=== PATIENT | female | born 1950 | race Caucasian/White ===

== ENCOUNTER → 2024-01-16 12:13 | Outpatient (REF) | payer MEDICARE, OTHER, SELFPAY | LOC: RAD 12:13 | PROVIDERS: ATTENDING PHYSICIAN Internal Medicine Cardiovascular Disease; FAMILY PHYSICIAN Family Medicine; REFERRING PHYSICIAN Internal Medicine Cardiovascular Disease | DX: I48.91 Unspecified atrial fibrillation (principal); Z95.2 Presence of prosthetic heart valve; Z98.890 Other specified postprocedural states; I27.20 Pulmonary hypertension, unspecified | CPT/HCPCS: 71260; 74177; Q9967 ==

== ENCOUNTER 2024-04-20 05:50 | Day surgery (SDC) | payer MEDICARE, OTHER, SELFPAY ==
[2024-02-02 11:05] VITALS: BMI 31.6
[2024-04-10 10:36] VITALS: BMI 31.1
[2024-04-20] VITALS (26 sets, daily range): BP systolic 76–138; BP diastolic 54–91; BMI 30.7
[2024-04-20 07:13] LABS: PT 23.8 Sec (11.4-14.6)
[2024-04-20 09:16] LABS: ACT-LR - POC 384 Seconds (116-155)
[2024-04-20 09:40] LABS: ACT-LR - POC 372 Seconds (116-155)
--- NOTE | 2024-04-20 10:05 | ITS.CL.ABL ---
Addendum entered and electronically signed by Olegario Cm MD 04/20/24 10:50:
Lead information on the epicardial pacing lead is Medtronic serial number [id number] and [id number] implant date 11/02/2021 which was inactivated but in the left deltopectoral pocket via fluoroscopy. Brand is Capsure epi
Original Note:
Pot Room Tapper - Ablation
Ablation
Procedure Report:
ELECTROPHYSIOLOGY ABLATION STUDY
�
DATE:: April 20, 2024���������������������������� REFERRING: Dr. Noah Hand
�
INDICATION: Persistent atrial fibrillation
�
HISTORY: See H and P.� Recent pulmonic valve replacement, aortic valve replacement, tricuspid valve ring with prior open heart surgery in the with pulmonic valve repair.
�
ANTIARRHYTHMIC DRUG: Metoprolol
�
PRE-PROCEDURE WENDY: No intracardiac thrombus on intracardiac ultrasound
�
PRESENTING RHYTHM: A-fib
�
'TIME-OUT':� called and confirmed.
�
SEDATION/ANESTHESIA:� provided via the anesthesia department using general anesthesia (LMA).
�
INTRAVENOUS/ARTERIAL ACCESS:
Right femoral venous - 8Fr
Left femoral venous - 8 Fr, 6 Fr
Ultrasound guidance for bilateral femoral vein access was utilized by me to obtain access with demonstration of normal anatomy
CHADS-VASC Score: Age greater than 75, female gender, hypertension
�
HAS-Bled Score
�
PROCEDURE:�
1.� A decapolar CS catheter was placed within the CS for mapping and pacing.� This was also used as the reference catheter for the 3-D map. The patient was noted to have an epicardial so on pacemaker lead which was not indicated in the surgical
report. The surgical report indicates an ICD lead was sewn on but it is a pacemaker lead. We obtained the information demonstrating a saw on Medtronic pacemaker lead which is tunneled into the left deltopectoral groove pocket. Utilizing
ultrasound guidance venous access was relatively straightforward. She had bilateral cutdowns with abdominal incision and clamshell as part of her surgery in the .
�
2. The intracardiac ultrasound catheter was positioned in the RA to identify the FO for targeting of transseptal puncture, assist� in identification of the pulmonary vein ostia, monitoring pre and post ablation pulmonary vein flow velocities,
monitoring for 'bubble' formation during RF application as a sign of thermal injury,� and to monitor for pericardial effusion during mapping and ablation procedure.�� Left atrial size, LV ejection fraction, and pulmonary vein flows were monitored
pre and post ablation procedure. The other valves were inspected and found to be free of significant regurgitation or stenosis.
�
3.� Half of the calculated heparin bolus was administered prior to the first transeptal puncture.� Transseptal puncture was performed to diagnose RA and LA pressure so that safety of LA mapping and ablation could be further assessed, and to access
the left atrium and pulmonary veins for mapping and ablation.� This entailed advancing an 10 Alger[place] Contour with dilator into the superior vena cava and withdrawing both (monitoring intracardiac ultrasound, fluoroscopy and tip pressure) with the tip
oriented toward the atrial septum.� The fossa ovalis was engaged (indicated by sudden displacement of the sheath tip as well as tenting of the fossa seen on intracardiac ultrasound).� Left atrial access required a pass with the Brockenbrough needle
extended.� Left atrial catheter position was confirmed by pressure monitoring (RA mean pressure 8 mm Hg and LA mean presure 14 mm Hg), LA saturation ( 99%),� as well as fluoroscopy.� The sheath was advanced over the dilator and positioned in the
left atrium.� This procedure was repeated for the Agilis sheath.� The remainder of the calculated heparin bolus was administered and heparin was
infused to maintain ACT at 300 -350 seconds throughout the case.
�
4.� RA pacing was performed via the proximal decapolar poles and LA pacing was performed via the distal decapolar poles.
�
5. A quadrapolar catheter was first positioned at the His position for His Bundle recording which was tagged via the 3-D Navex sytem, and then passed to the RVA for RV pacing and recording.
�
6. The multipolar grid and PFA catheter were placed in each of the LIPV, LSPV, RSPV and the RIPV.��
�
7.� Next, a 3-D map was created using Navex.�� A 3-D reconstructed CT image was compared to the 3-D Navex map to assist in anatomic interpretation, mapping and ablation.� The CT image and the NavX image were fused.
�
8. Pulmonary vein and nonpulmonary vein lesions were created with entrance and exit block in each of the 4 pulm veins and the posterior wall. The patient was converted to sinus rhythm with a 6-second pause and resumption of junctional rhythm.
Atropine was given an answer with eventual return of sinus rhythm in the 40s and hemodynamic stability. After anesthesia was removed sinus rates in the 50s were noted with hemodynamic stability. We did pace the right atrium at 1200 ms for 15
minutes to bring about sinus node function in addition to the atropine.
�
9. Sinus node dysfunction as above with AV conduction and AV Wenke block at 420 ms with block in the AH interval.
�
TOTAL FLOURO TIME: 16.7 minutes 123 mGy
�
TOTAL RF DURATION: 0 minutes
�
REVERSAL OF HEPARIN: 35 mg of protamine, slow IV administration
�
COMPLICATIONS:�
None
Intracardiac US shows no pericardial effusion post ablation.
�
SUMMARY:��
Complex left atrial mapping and ablation.
Isolation of the left atrial posterior wall and pulmonary veins. We obtain lead information on the ventricular pacing lead which is Medtronic in standard pin connection which is tunneled into the left pocket.
�
RECOMMENDATIONS:
1. Admit to monitored bed.
2. Resume anticoagulation
3.� Discontinue metoprolol and will monitor for the next 24 hours in terms of sinus node function. Throughout the day if she notices no return and improvement of sinus node function we may even consider discharge later this evening.
4.� Out of bed in 4 hours
�
Copy to: Dr. Noah Hand
�
[2024-04-20] MEDS: NSS 500 IV (10:55)
[2024-04-20] MEDS: ANESTHETIC LOZENGE 1 LOZENGE PO ×2 (11:31→19:39)
--- NOTE | 2024-04-20 13:57 | PTCARENOTE ---
received pt post PVI, bilateral groins CDI. Pt offers no complaints at this time. pt oriented to unit. pt educated on plan of care and pt verbalized understanding.
pts BP is 86/66, notified Padmini Morgan, will continues to watch. call bellamy within reach.
[2024-04-20] MEDS: PROTONIX 40 MG PO (17:27)
[2024-04-20] MEDS: COUMADIN 2.5 MG PO (17:27)
--- NOTE | 2024-04-20 18:57 | PTCARENOTE ---
pt continues to be sr on the monitor, hr in the 70s, vss. pt offers no complaints at this time. bilateral figure eights cut, dressing CDI. pt educated on plan of care and pt verbalized understanding. call bellamy within reach.
--- NOTE | 2024-04-21 00:24 | PTCARENOTE ---
Pt. has no complaints pain/discomfort, VSS, NSR with PVC's on the monitor. B/L groin site dressings CDI without any S&S hematoma, pedal pulses present via Doppler. BP improved, last . Pt. currently sleeping.
[2024-04-21 03:28] VITALS: BP 100/72
[2024-04-21 04:07] LABS: Hematocrit 34.9 % (37.0-47.0); Hemoglobin 11.4 g/dL (12.0-16.0); Mean Corp Hgb Conc. 32.7 g/dL (33.0-37.0); Mean Corpuscular Hgb 28.1 pg (27.0-31.0); Mean Corpuscular Volume 86.2 fL (81.0-99.0); Mean Platelet Volume 9.6 fL (7.4-10.4); Platelet Count 162 10^3/uL (130-400); Red Blood Cell Count 4.05 10^6/uL (4.20-5.40); Red Cell Dist. Width 14.3 % (11.5-14.5); White Blood Cell Count 7.1 10^3/uL (4.8-10.8)
[2024-04-21 04:10] LABS: INR 2.48; PT 26.8 Sec (11.4-14.6)
[2024-04-21 04:28] LABS: Blood Urea Nitrogen 19 mg/dl (7-17); Calcium 9.3 mg/dl (8.4-10.2); Carbon Dioxide 25 mmol/L (22-30); Chloride 105 mmol/L (98-107); Estimated Creatinine Clearance 63 ml/min; Glucose 116 mg/dl (70-99); Potassium 4.2 mmol/L (3.5-5.1); Sodium 136 mmol/L (135-145); eGFR > 60.00
[2024-04-21 05:35] VITALS: BMI 31.5
[2024-04-21 06:00] VITALS: BMI 30.7
[2024-04-21] MEDS: LOW STRENGTH ASPIRIN 81 MG PO (07:35)
[2024-04-21 07:39] VITALS: BP 108/74
--- NOTE | 2024-04-21 08:45 | W.PN.CARDCBS ---
Addendum entered and electronically signed by Venkat Romo DO 04/21/24 09:19:
I saw and examined the patient.
The Biology Professor's note was reviewed and I agree with the note.
Comment:
Patient seen and examined this morning no acute events overnight. Patient sinus rhythm with PVCs with compensatory pauses less than 2 seconds in duration. Patient asymptomatic. Patient denies any chest pain, shortness of breath, lightheadedness,
dizziness, near-syncope, syncope, or weakness.
GEN: No distress, awake, alert, oriented x3
HEENT: supple, anicteric, mmm, eomi
LUNGS: CTA B/L, no wheezes/rales
CV: Reg, S1/S2, 1/6 syst LSB
ABD: soft, BS+, NT/ND
EXT: No cyanosis, clubbing, edema
NEURO: Gross non-focal
SKIN: Warm, pink, dry. No rash. B/L groin sites soft, c/d/i
A/P as below
Persistent atrial fibrillation/atrial flutter status post PVI 04/20/2024 doing well remains in sinus rhythm
Continue oral anticoagulation uninterrupted, monitor INR as followed by outpatient railroad purchasing agent
Hold metoprolol given episodes of sinus bradycardia and compensatory pauses post PVC
Patient to follow-up Tuesday for 5-day event rhythmstar monitor to reassess bradycardic burden and provide further data for possible reinitiation of beta-kellie
Follow-up with Dr. Hand
Original Note:
Today's Communication / Plan
-
for DC today
[facility] office to contact patient tuesday to place 5 day rhythm star monitor
toprol discontinued
continue coumadin
OP follow up with [facility]
Impression / Plan
-
Primary Peer Financial Counselor: Dr. Hand of [facility]
Primary EP: Dr. Cm
Assessment:
Persistent atrial fibrillation/typical aflutter s/p PVI 04/20/24
Valvular disease
s/p remote pulmonic valve repair at age 6
s/p AVR (tissue), PVR (tissue), tricuspid repair and epicardial IV ICD lead 10/2021, Dr. Hernandez, [facility].
Chronic coumadin therapy
Hypertension
GERD with questionable history of GIB due to gastric ulcer
Obstructive sleep apnea, CPAP intolerant
Iron deficiency anemia
Plan:
-Status post PVI 04/20/2024
-Bilateral groin sites clean dry and intact, soft. discussed avoiding creams/ointments to area (states she is a lover of vaseline), keep clean and dry
-Hemoglobin 11.4
-Outpatient Toprol discontinued due to bradycardia and some pauses approximately 2 seconds noted postprocedure
-Of note, she does have periods of ventricular bigeminy, however overall heart rates improved in the 60s to 70s this morning. She is ambulated without difficulty
-Will plan for outpatient rhythm start 5-day monitor placement on Tuesday in [facility] office
-continue coumadin, INR 2.48 on 04/21
-Outpatient follow-up with [facility]
-ok for DC to home today
-d/w nursing
dictation #[id number]
Progress Note - Peer Financial Counselor
Subjective
Date of Service: April 21, 2024
Reported some shakiness last night, however states she did not eat well. Feeling better this morning. No lightheadedness or palpitations reported
Objective
Labs:
04/21/24 03:41
04/21/24 03:41
Labs
Hgb 11.4 g/dL (12.0-16.0) L 04/21/24 03:41
Hct 34.9 % (37.0-47.0) L 04/21/24 03:41
Plt Count 162 10^3/uL (130-400) 04/21/24 03:41
PT 26.8 Sec (11.4-14.6) H 04/21/24 03:41
INR 2.48 04/21/24 03:41
Sodium 136 mmol/L (135-145) 04/21/24 03:41
Potassium 4.2 mmol/L (3.5-5.1) 04/21/24 03:41
BUN 19 mg/dl (7-17) H 04/21/24 03:41
Creatinine 0.8 mg/dL (0.6-1.0) 04/21/24 03:41
Glucose 116 mg/dl (70-99) H 04/21/24 03:41
Vital Signs and I&O:
Vital Signs
Temp Pulse Resp BP Pulse Ox
98.3 F 75 19 100/72 97
04/21/24 03:28 04/21/24 07:00 04/21/24 03:28 04/21/24 03:28 04/21/24 07:41
Vital Signs
Temp Pulse Resp BP Pulse Ox
98.3 F 75 19 100/72 97
04/21/24 03:28 04/21/24 07:00 04/21/24 03:28 04/21/24 03:28 04/21/24 07:41
Intake & Output
04/19/24 04/20/24 04/21/24 04/22/24
07:59 07:59 07:59 07:59
Intake Total 2750 / 2750
Balance 2750 / 2750
Physical Exam
Physical Exam
GEN: No distress, awake, alert, oriented x3
HEENT: supple, anicteric, mmm, eomi
LUNGS: CTA B/L, no wheezes/rales
CV: Reg, S1/S2, 1/6 syst LSB
ABD: soft, BS+, NT/ND
EXT: No cyanosis, clubbing, edema
NEURO: Gross non-focal
SKIN: Warm, pink, dry. No rash. B/L groin sites soft, c/d/i
--- NOTE | 2024-04-21 08:53 | PTCARENOTE ---
pt continues to be sr/bigeminy on heart monitor, hr in the 60s-70s, vss. pt offers no complaints at this time. pt educated on plan of care for the day and pt verbalized understanding. call bellamy within reach.
--- NOTE | 2024-04-21 09:01 | W.DS.TRANS ---
DC Summary - [facility]
-
Discharge Instructions:
Discharge Diagnosis/Procedures AFib, s/p ablation
Diet Low Cholesterol
Driving Restrictions No driving for 24 hours
Bathing Restrictions OK to Shower
Others Tests 5 day alarm security or surveillance monitor - Dr. Cm's office
will call you on Monday 04/23 with time to report
for placement
Instructions:
Stand-Alone Forms: DC Instructions- Cath/EP Lab
Changes to Home Medications: Yes
Discharge Medications:
DC Medications w/original date entered in [employer]
One-A-Day Women's 50 Plus 1 tab PO DAILY 01/26/24
aspirin 81 mg tablet 81 mg PO DAILY 01/26/24
cephalexin 500 mg tablet 2,000 mg PO ONCE PRN pre dental 01/26/24
cholecalciferol (vitamin D3) 25 mcg (1,000 unit) tablet (Vitamin D3) 50 mcg PO DAILY 01/26/24
cyanocobalamin (vitamin B-12) 1,000 mcg tablet (Vitamin B-12) 1,000 mcg PO DAILY 01/26/24
magnesium oxide 400 mg PO DAILY 01/26/24
pantoprazole 40 mg tablet,delayed release 40 mg PO QPM 01/26/24
warfarin 5 mg tablet 2.5 mg PO MOWEFR 01/26/24
warfarin 5 mg tablet 7.5 mg PO SUTUTHSA 01/26/24
Home Medication Changes
toprol stopped
Pending Results: No
--- NOTE | 2024-04-21 11:11 | PTCARENOTE ---
d/c instructions read to pt and pt verbalized understanding. iv and tele removed. pt left via wheelchair with staff member. pt left w/ belongings from room and educational material.
[2024-04-23 13:29] LABS: ACT-LR - POC > 397 Seconds (116-155)
== END 2024-04-21 11:12 | disposition home or self-care (01) ==
LOC: CATH 05:50
PROVIDERS: Nurse Practitioner; ATTENDING PHYSICIAN Internal Medicine Cardiovascular Disease; FAMILY PHYSICIAN Family Medicine; OTHER PHYSICIAN Internal Medicine Cardiovascular Disease
DX: I48.19 Other persistent atrial fibrillation (principal); I48.92 Unspecified atrial flutter; R00.2 Palpitations; R06.02 Shortness of breath; Z79.899 Other long term (current) drug therapy; Z79.01 Long term (current) use of anticoagulants; D15.1 Benign neoplasm of heart; I08.1 Rheumatic disorders of both mitral and tricuspid valves; I10 Essential (primary) hypertension; K21.9 Gastro-esophageal reflux disease without esophagitis; G47.33 Obstructive sleep apnea (adult) (pediatric); E66.9 Obesity, unspecified; Z68.31 Body mass index [BMI] 31.0-31.9, adult; D50.9 Iron deficiency anemia, unspecified; Z79.82 Long term (current) use of aspirin; Z88.0 Allergy status to penicillin; Z90.49 Acquired absence of other specified parts of digestive tract
CPT/HCPCS: C1732; C1730; C1733; C1769; C1892; C1766; C1759; 76937; 80048; 85027; 85347; 85610; 86900; 86901; 93005; 93656

== ENCOUNTER → 2025-07-09 09:00 | Outpatient (REF) | payer MEDICARE, OTHER, SELFPAY | LOC: DHSLP 09:00 | PROVIDERS: ATTENDING PHYSICIAN Internal Medicine Cardiovascular Disease; FAMILY PHYSICIAN Family Medicine | DX: G47.33 Obstructive sleep apnea (adult) (pediatric) (principal); R09.02 Hypoxemia | CPT/HCPCS: 95800 ==

== ENCOUNTER 2025-09-12 09:45 | Day surgery (SDC) | payer MEDICARE, OTHER, SELFPAY ==
[2025-09-12 10:50] LABS: INR 2.93; PT 30.1 Sec (11.4-14.6)
--- NOTE | 2025-09-12 11:17 | ITS.CL.CARDI ---
Director Media - Cardioversion
Cardioversion
Procedure Report:
Sedation: per anesthesia
Procedure: Successful synchronized biphasic cardioversion with 200 Joules to NSR with frequent PVCs ,couplets.
Patient was positively identified, and procedure time was taken. Informed consent obtained. Correct patient position. Relevant images and results reviewed prior to procedure. Patient history and medications reviewed. Agreement to proceed.
Pre-op Diagnosis: afib
Post-op Diagnosis: Same
Patient was taken to the recovery area in stable condition. No complications
== END 2025-09-12 10:00 | disposition home or self-care (01) ==
LOC: CATH 09:45
PROVIDERS: ATTENDING PHYSICIAN Internal Medicine Interventional Cardiology; FAMILY PHYSICIAN Family Medicine; OTHER PHYSICIAN Internal Medicine Cardiovascular Disease
DX: I48.0 Paroxysmal atrial fibrillation (principal); Z79.82 Long term (current) use of aspirin; Z79.01 Long term (current) use of anticoagulants; Z79.899 Other long term (current) drug therapy
CPT/HCPCS: 85610; 92960; 93005